=== PATIENT | female | born 1960 | race Hispanic/Latino ===

== ENCOUNTER 2019-04-20 04:26 | Emergency (ER) | payer MEDICARE ==
[2019-04-20 04:46] LABS: BASOPHILS % (AUTO) 0.5 % (0.0-5.0); HEMATOCRIT 38.3 % (36-48); LYMPHOCYTES % (AUTO) 32.7 % (21.0-51.0); MEAN CORPUSCULAR HEMOGLOBIN 31.1 pg (27.0-33.0); MEAN CORPUSCULAR HGB CONC 33.3 g/dL (32.0-36.0); MEAN CORPUSCULAR VOLUME 93.3 fL (79-99); MONOCYTES % (AUTO) 8.2 % (3.0-13.0); NEUTROPHILS % (AUTO) 55.6 % (40.0-77.0); PLATELET COUNT (AUTO) 280 K/uL (130-400); RED CELL DISTRIBUTION WIDTH 13.5 % (11.0-15.5); WHITE BLOOD COUNT (AUTO) 7.5 K/uL (4.8-10.8)
[2019-04-20 04:54] LABS: CREATININE 0.6 mg/dL (0.5-1.5); POTASSIUM 3.6 mmol/L (3.5-5.1)
[2019-04-20 04:59] LABS: ALBUMIN 3.7 g/dL (3.5-5.0); BILIRUBIN,TOTAL 0.7 mg/dL (0.2-1.0); TOTAL PROTEIN, SERUM 7.3 g/dL (6.0-8.3)
[2019-04-20] MEDS ORDERED: ORPHENADRINE CITRATE 30 MG/ML ML ONE (05:37)
[2019-04-20] MEDS ORDERED: KETOROLAC TROMETHAMINE 30MG/ML ONE (05:37)
[2019-04-20] MEDS ORDERED: SODIUM CHLORIDE 0.9% 1000ML 1,000 ML IV ONE (05:38)
[2019-04-20] MEDS ORDERED: LIDOCAINE 5% TOPICAL PATCH TP ONE (07:11)
== END 2019-04-20 08:05 | disposition home or self-care (01) ==
LOC: EDH 04:26
DX: M62.830 Muscle spasm of back (principal); R79.89 Other specified abnormal findings of blood chemistry; F41.9 Anxiety disorder, unspecified; F32.9 Major depressive disorder, single episode, unspecified; K21.9 Gastro-esophageal reflux disease without esophagitis; R06.02 Shortness of breath; R07.9 Chest pain, unspecified
CPT/HCPCS: 36415; 71045; 80053; 84484; 85025; 93005; 96374; 96375; 99285; J1885; J2360; J7030

== ENCOUNTER → 2019-07-24 | Outpatient (CLI) | payer MEDICARE | END | disposition home or self-care (01) | LOC: SHCH 10:06 | PROVIDERS: ATTEND Internal Medicine Cardiovascular Disease | DX: I51.7 Cardiomegaly (principal); R00.2 Palpitations; R07.9 Chest pain, unspecified | CPT/HCPCS: 93306 ==

== ENCOUNTER → 2019-08-20 | Outpatient (CLI) | payer OTHER | END | disposition home or self-care (01) | LOC: OIH 13:30 | PROVIDERS: ATTEND Internal Medicine Cardiovascular Disease | DX: Z13.6 Encounter for screening for cardiovascular disorders (principal) | CPT/HCPCS: 75571 ==

== ENCOUNTER 2019-09-07 17:24 | Emergency (ER) | payer MEDICARE ==
[2019-09-07 18:27] LABS: BASOPHILS % (AUTO) 0.4 % (0.0-5.0); EOSINOPHILS % (AUTO) 2.3 % (0.0-8.0); HEMATOCRIT 38.6 % (36-48); LYMPHOCYTES % (AUTO) 24.5 % (21.0-51.0); MEAN CORPUSCULAR HEMOGLOBIN 29.8 pg (27.0-33.0); MEAN CORPUSCULAR HGB CONC 32.4 g/dL (32.0-36.0); MEAN CORPUSCULAR VOLUME 91.9 fL (79-99); MONOCYTES % (AUTO) 5.7 % (3.0-13.0); NEUTROPHILS % (AUTO) 66.7 % (40.0-77.0); PLATELET COUNT (AUTO) 318 K/uL (130-400); RED CELL DISTRIBUTION WIDTH 12.9 % (11.0-15.5); WHITE BLOOD COUNT (AUTO) 7.1 K/uL (4.8-10.8)
[2019-09-07 18:39] LABS: CREATININE 0.8 mg/dL (0.5-1.5); POTASSIUM 3.4 mmol/L (3.5-5.1)
[2019-09-07 18:43] LABS: ALBUMIN 3.8 g/dL (3.5-5.0); BILIRUBIN,TOTAL 0.4 mg/dL (0.2-1.0); INR 1.13 (0.85-1.15); PARTIAL THROMBOPLASTIN TIME 29.6 SEC (26.3-35.5); PROTHROMBIN TIME 11.8 SEC (9.6-11.6); TOTAL PROTEIN, SERUM 7.4 g/dL (6.0-8.3)
[2019-09-07] MEDS ORDERED: TRAMADOL HCL 50 MG TABLET ONE (19:44)
[2019-09-07 19:54] LABS: APPEARANCE,URINE Cloudy (CLEAR); BILIRUBIN,URINE Negative (NEGATIVE); COLOR,URINE Dark Yellow (YELLOW); GLUCOSE, URINE (UA) TRACE mg/dL (NEGATIVE); KETONES,URINE Negative (NEGATIVE); LEUKOCYTE ESTERASE ,URINE Moderate (NEGATIVE); NITRATE,URINE Negative (NEGATIVE); OCCULT BLOOD,URINE Negative (NEGATIVE); PROTEIN,URINE Negative (NEGATIVE)
[2019-09-07] MEDS ORDERED: CYCLOBENZAPRINE HCL 10 MG TABLET ONE (20:20)
[2019-09-07 20:23] LABS: BACTERIA,URINE Few /HPF (None Seen); MUCUS,URINE Many LPF (None Seen); RBC,URINE 0-1 /HPF (0-1); SQUAMOUS EPITHELIAL CELL,UR Moderate /HPF (0-2)
== END 2019-09-07 20:27 | disposition home or self-care (01) ==
LOC: EDH 17:24
DX: M54.5 Low back pain (principal); R03.0 Elevated blood-pressure reading, without diagnosis of hypertension; F41.9 Anxiety disorder, unspecified; F32.9 Major depressive disorder, single episode, unspecified
CPT/HCPCS: 36415; 71045; 74176; 80053; 81001; 82150; 82550; 83690; 84484; 85025; 85610; 85730; 93005

== ENCOUNTER → 2019-10-21 | Outpatient (CLI) | payer MEDICARE | END | disposition home or self-care (01) | LOC: LAB 09:11 | PROVIDERS: ATTEND Neuromusculoskeletal Medicine & OMM | DX: M47.26 Other spondylosis with radiculopathy, lumbar region (principal); M48.061 Spinal stenosis, lumbar region without neurogenic claudication | CPT/HCPCS: 72114 ==

== ENCOUNTER → 2020-09-29 | Outpatient (CLI) | payer MEDICARE | END | disposition home or self-care (01) | LOC: RAH 09:39 | PROVIDERS: ATTEND Family Medicine | DX: M79.672 Pain in left foot (principal) | CPT/HCPCS: 73630 ==

== ENCOUNTER 2021-08-29 00:11 | Emergency (ER) | payer MEDICARE ==
[~2021-08-29] VITALS: Ht 157.5 cm; Wt 83.5 kg
[2021-08-29] MEDS ORDERED: IPRATROPIUM 0.5 MG/2.5 ML INH IH ONE ×2 (01:30→03:16)
[2021-08-29] MEDS ORDERED: ALBUTEROL 0.083% 2.5 MG/3 ML INH IH ONE ×2 (01:30→03:16)
[2021-08-29] MEDS ORDERED: GUAIFENESIN-CODEINE 5 ML SYRUP PO ONE (01:30)
[2021-08-29 04:15] VITALS: BP 137/64
== END 2021-08-29 05:43 | disposition left against medical advice (07) ==
LOC: EDH 00:11
DX: J06.9 Acute upper respiratory infection, unspecified (principal); I10 Essential (primary) hypertension; Z20.822 Contact with and (suspected) exposure to COVID-19; Z79.899 Other long term (current) drug therapy
CPT/HCPCS: 71045; 87635; 87804 ×2; 94640; 99285; C9803

== ENCOUNTER 2022-09-03 15:13 | Emergency (ER) | payer MEDICARE ==
[~2022-09-03] VITALS: Ht 154.9 cm; Wt 86.6 kg
[2022-09-03 16:09] LABS: HEMATOCRIT 35.8 % (36-48); MEAN CORPUSCULAR HEMOGLOBIN 30.4 pg (27.0-33.0); MEAN CORPUSCULAR HGB CONC 33.8 g/dL (32.0-36.0); MEAN CORPUSCULAR VOLUME 89.9 fL (79-99); RED BLOOD CELL COUNT(AUTO) 3.98 MIL/uL (4.00-5.50); RED CELL DISTRIBUTION WIDTH 12.9 % (11.0-15.5); WHITE BLOOD COUNT (AUTO) 7.7 K/uL (4.8-10.8)
[2022-09-03 16:19] LABS: CREATININE 0.7 mg/dL (0.5-1.5); POTASSIUM 4.1 mmol/L (3.5-5.1)
[2022-09-03 16:22] LABS: ALBUMIN 3.6 g/dL (3.5-5.0); TOTAL PROTEIN, SERUM 7.3 g/dL (6.0-8.3)
[2022-09-03 18:36] LABS: APPEARANCE,URINE CLEAR (CLEAR); BILIRUBIN,URINE NEGATIVE (NEGATIVE); COLOR,URINE LIGHT-YELLOW (YELLOW); GLUCOSE, URINE (UA) NEGATIVE (NEGATIVE); KETONES,URINE NEGATIVE (NEGATIVE); LEUKOCYTE ESTERASE ,URINE NEGATIVE Leu/uL (NEGATIVE); NITRATE,URINE NEGATIVE (NEGATIVE); OCCULT BLOOD,URINE NEGATIVE (NEGATIVE); PH,URINE 7.5 (5.0-8.0); PROTEIN,URINE NEGATIVE (NEGATIVE); UROBILINOGEN,URINE 0.2 mg/dL (0.2-1.0)
[2022-09-03 18:37] VITALS: BP 124/60
[2022-09-03] MEDS ORDERED: ONDA4TAB10 PO (18:37)
== END 2022-09-03 18:42 | disposition home or self-care (01) ==
LOC: EDH 15:13
DX: S06.0X0A Concussion without loss of consciousness, initial encounter (principal); E78.00 Pure hypercholesterolemia, unspecified; I10 Essential (primary) hypertension; R56.9 Unspecified convulsions; Z90.49 Acquired absence of other specified parts of digestive tract; W19.XXXA Unspecified fall, initial encounter; Y93.89 Activity, other specified; Y92.89 Other specified places as the place of occurrence of the external cause; Y99.8 Other external cause status
CPT/HCPCS: 36415; 70450; 80053; 81003; 85027; 93005

== ENCOUNTER 2023-04-13 12:39 | Emergency (ER) | payer MEDICARE, OTHER ==
[~2023-04-13] VITALS: Ht 157.5 cm; Wt 83.5 kg
[~2023-04-13 12:39] MED LIST: LEVO-70 PO; OLME20TA22 PO; ONDA4TAB10 PO
[2023-04-13 13:20] LABS: BASOPHILS # (AUTO) 0.04 K/uL (0.00-0.20); BASOPHILS % (AUTO) 0.5 % (0.0-5.0); EOSINOPHILS # (AUTO) 0.17 K/uL (0.00-0.70); EOSINOPHILS % (AUTO) 2.2 % (0.0-8.0); HEMATOCRIT 42.9 % (36-48); IMMATURE GRANULOCYTE ABSOLUTE 0.02 K/uL (0-1); LYMPHOCYTES # (AUTO) 2.4 K/uL (1.0-4.8); LYMPHOCYTES % (AUTO) 31.2 % (21.0-51.0); MEAN CORPUSCULAR HEMOGLOBIN 29.6 pg (27.0-33.0); MEAN CORPUSCULAR HGB CONC 32.6 g/dL (32.0-36.0); MEAN CORPUSCULAR VOLUME 90.7 fL (79-99); MONOCYTES # (AUTO) 0.6 K/uL (0.1-1.0); MONOCYTES % (AUTO) 7.6 % (3.0-13.0); NEUTROPHILS # (AUTO) 4.5 K/uL (1.8-7.7); NEUTROPHILS % (AUTO) 58.2 % (40.0-77.0); PLATELET COUNT (AUTO) 357 K/uL (130-400); RED BLOOD CELL COUNT(AUTO) 4.73 MIL/uL (4.00-5.50); RED CELL DISTRIBUTION WIDTH 13.3 % (11.0-15.5); WHITE BLOOD COUNT (AUTO) 7.8 K/uL (4.8-10.8)
[2023-04-13 13:28] LABS: CREATININE 0.6 mg/dL (0.5-1.5); POTASSIUM 4.1 mmol/L (3.5-5.1)
[2023-04-13 13:32] LABS: ALBUMIN 3.7 g/dL (3.5-5.0); BILIRUBIN,TOTAL 0.5 mg/dL (0.2-1.0); MAGNESIUM 2.1 mg/dL (1.80-2.40); TOTAL PROTEIN, SERUM 7.8 g/dL (6.0-8.3)
[2023-04-13 13:36] LABS: APPEARANCE,URINE CLOUDY (CLEAR); BILIRUBIN,URINE NEGATIVE (NEGATIVE); COLOR,URINE YELLOW (YELLOW); GLUCOSE, URINE (UA) NEGATIVE (NEGATIVE); KETONES,URINE NEGATIVE (NEGATIVE); LEUKOCYTE ESTERASE ,URINE 25 Leu/uL (NEGATIVE); NITRATE,URINE NEGATIVE (NEGATIVE); OCCULT BLOOD,URINE MODERATE (NEGATIVE); PROTEIN,URINE 50 mg/dL (NEGATIVE); UROBILINOGEN,URINE 0.2 mg/dL (0.2-1.0)
[2023-04-13 13:37] LABS: ADD UA MICROSCOPIC YES
[2023-04-13 13:54] LABS: BACTERIA,URINE FEW /HPF (None Seen); MUCUS,URINE MANY LPF (None Seen); SQUAMOUS EPITHELIAL CELL,UR MOD /HPF (0-2)
[2023-04-13 15:42] VITALS: BP 119/59; PULSE 69; RESP 18; O2SAT 96
== END 2023-04-13 16:22 | disposition home or self-care (01) ==
LOC: EDH 12:39
DX: I48.0 Paroxysmal atrial fibrillation (principal); R35.0 Frequency of micturition; E78.00 Pure hypercholesterolemia, unspecified; I10 Essential (primary) hypertension; Z79.01 Long term (current) use of anticoagulants; Z90.49 Acquired absence of other specified parts of digestive tract
CPT/HCPCS: 36415; 71045; 80053; 81001; 83735; 83880; 84484; 85025; 93005

== ENCOUNTER 2023-07-02 12:33 | Emergency (ER) | payer OTHER ==
[~2023-07-02] VITALS: Ht 154.9 cm; Wt 84.4 kg
[2023-07-02 13:24] LABS: BASOPHILS # (AUTO) 0.04 K/uL (0.00-0.20); BASOPHILS % (AUTO) 0.5 % (0.0-5.0); EOSINOPHILS # (AUTO) 0.02 K/uL (0.00-0.70); EOSINOPHILS % (AUTO) 0.2 % (0.0-8.0); HEMATOCRIT 41.8 % (36-48); IMMATURE GRANULOCYTE ABSOLUTE 0.02 K/uL (0-1); LYMPHOCYTES # (AUTO) 2.2 K/uL (1.0-4.8); MEAN CORPUSCULAR HEMOGLOBIN 30.3 pg (27.0-33.0); MEAN CORPUSCULAR HGB CONC 33.5 g/dL (32.0-36.0); MEAN CORPUSCULAR VOLUME 90.5 fL (79-99); MONOCYTES # (AUTO) 0.7 K/uL (0.1-1.0); MONOCYTES % (AUTO) 8.9 % (3.0-13.0); NEUTROPHILS # (AUTO) 5.4 K/uL (1.8-7.7); NEUTROPHILS % (AUTO) 64.2 % (40.0-77.0); PLATELET COUNT (AUTO) 365 K/uL (130-400); RED BLOOD CELL COUNT(AUTO) 4.62 MIL/uL (4.00-5.50); RED CELL DISTRIBUTION WIDTH 13.7 % (11.0-15.5); WHITE BLOOD COUNT (AUTO) 8.4 K/uL (4.8-10.8)
[2023-07-02 13:32] LABS: CREATININE 0.8 mg/dL (0.5-1.5); POTASSIUM 4.3 mmol/L (3.5-5.1)
[2023-07-02 13:37] LABS: ALBUMIN 3.8 g/dL (3.5-5.0); BILIRUBIN,TOTAL 0.6 mg/dL (0.2-1.0); TOTAL PROTEIN, SERUM 7.9 g/dL (6.0-8.3)
[2023-07-02] MEDS ORDERED: PROPAFENONE HCL 150 MG TABLET PO SCH (14:00)
[2023-07-02 14:50] LABS: BILIRUBIN,URINE NEGATIVE (NEGATIVE); COLOR,URINE YELLOW (YELLOW); GLUCOSE, URINE (UA) NEGATIVE (NEGATIVE); KETONES,URINE 5 mg/dL (NEGATIVE); LEUKOCYTE ESTERASE ,URINE 25 Leu/uL (NEGATIVE); NITRATE,URINE NEGATIVE (NEGATIVE); OCCULT BLOOD,URINE SMALL (NEGATIVE); PH,URINE 5.5 (5.0-8.0); PROTEIN,URINE 50 mg/dL (NEGATIVE); UROBILINOGEN,URINE 3 mg/dL (0.2-1.0)
[2023-07-02 14:51] LABS: ADD UA MICROSCOPIC YES; APPEARANCE,URINE HAZY (CLEAR)
[2023-07-02 14:53] LABS: BACTERIA,URINE MOD /HPF (None Seen); MUCUS,URINE MANY LPF (None Seen); SQUAMOUS EPITHELIAL CELL,UR MANY /HPF (0-2)
[2023-07-02] MEDS ORDERED: CEPH500B PO (17:17)
[2023-07-02] MEDS ORDERED: PROP225T3 PO (17:17)
[2023-07-02] MEDS ORDERED: CEPHALEXIN 500 MG CAPSULE PO ONE (17:30)
[2023-07-02 17:43] VITALS: BP 112/64; PULSE 71; RESP 16; O2SAT 99
== END 2023-07-02 17:46 | disposition home or self-care (01) ==
LOC: EDH 12:33
DX: I48.0 Paroxysmal atrial fibrillation (principal); N30.00 Acute cystitis without hematuria; I48.91 Unspecified atrial fibrillation; I10 Essential (primary) hypertension; E78.00 Pure hypercholesterolemia, unspecified; Z90.49 Acquired absence of other specified parts of digestive tract
CPT/HCPCS: 36415; 71045; 80053; 81001; 84484; 85025; 87088; 93005

== ENCOUNTER 2023-07-11 05:45 | Day surgery (SDC) | payer OTHER ==
[2023-07-07 10:46] LABS: BASOPHILS # (AUTO) 0.03 K/uL (0.00-0.20); BASOPHILS % (AUTO) 0.5 % (0.0-5.0); EOSINOPHILS # (AUTO) 0.04 K/uL (0.00-0.70); EOSINOPHILS % (AUTO) 0.6 % (0.0-8.0); HEMATOCRIT 37.7 % (36-48); IMMATURE GRANULOCYTE ABSOLUTE 0.02 K/uL (0-1); LYMPHOCYTES # (AUTO) 1.7 K/uL (1.0-4.8); LYMPHOCYTES % (AUTO) 26.8 % (21.0-51.0); MEAN CORPUSCULAR HEMOGLOBIN 30.3 pg (27.0-33.0); MEAN CORPUSCULAR HGB CONC 33.2 g/dL (32.0-36.0); MEAN CORPUSCULAR VOLUME 91.3 fL (79-99); MONOCYTES # (AUTO) 0.5 K/uL (0.1-1.0); MONOCYTES % (AUTO) 8.7 % (3.0-13.0); NEUTROPHILS # (AUTO) 3.9 K/uL (1.8-7.7); NEUTROPHILS % (AUTO) 63.1 % (40.0-77.0); PLATELET COUNT (AUTO) 326 K/uL (130-400); RED BLOOD CELL COUNT(AUTO) 4.13 MIL/uL (4.00-5.50); RED CELL DISTRIBUTION WIDTH 13.5 % (11.0-15.5); WHITE BLOOD COUNT (AUTO) 6.2 K/uL (4.8-10.8)
[2023-07-07 10:52] LABS: CREATININE 0.6 mg/dL (0.5-1.5); POTASSIUM 4.3 mmol/L (3.5-5.1)
[2023-07-07 10:55] LABS: INR 1.48 (0.85-1.15); PROTHROMBIN TIME 16.7 SEC (9.6-11.6)
[2023-07-07 10:56] LABS: PARTIAL THROMBOPLASTIN TIME 53.1 SEC (26.3-35.5)
[2023-07-07 11:10] LABS: B-TYPE NATRIURETIC PEPTIDE 94 pg/mL (0-100)
[2023-07-07 11:15] VITALS: BP 116/60; PULSE 59; RESP 15
[~2023-07-11] VITALS: Ht 154.9 cm; Wt 83.9 kg
[2023-07-11] VITALS (9 sets, daily range): BP systolic 108–150; BP diastolic 46–79; PULSE 45–52; RESP 14–18
[~2023-07-11 05:45] MED LIST changes: +CEPH500C2 PO; -LEVO-70 PO; -OLME20TA22 PO; +OLME5TAB29 PO; -ONDA4TAB10 PO; +PROP225T3 PO; +RIVA20TA PO; +ROSU10TA28 PO
[2023-07-11] MEDS ORDERED: 0.9%NACL 1000ML 1,000 ML IV ONE (06:49)
[2023-07-11] MEDS ORDERED: HEPARIN 10,000 UNIT/10ML (1,000 UNIT/ML) VIAL ONE (07:12)
[2023-07-11] MEDS ORDERED: LIDOCAINE HCL 400MG/20ML VIAL ONE (07:12)
[2023-07-11] MEDS ORDERED: NITROGLYCERIN 50MG VIAL ONE (07:12)
[2023-07-11] MEDS ORDERED: NICARDIPINE 25MG INJ IV ONE (07:25)
[2023-07-11] MEDS ORDERED: FENTANYL CITRATE PF 50 MCG/1 ML 2ML VIAL ONE ×2 (07:41→08:30)
[2023-07-11] MEDS ORDERED: MIDAZOLAM HCL 1 MG/ML 2ML VIAL ONE ×2 (07:41→08:30)
[2023-07-11] MEDS ORDERED: IOHEXOL 350 MG/ML 100ML INFUS..BTL IV ONE (07:57)
[2023-07-11] MEDS ORDERED: 0.9%NACL 1000ML 1,000 ML IV SCH (09:30)
[2023-07-11] MEDS ORDERED: GLUCAGON 1MG KIT 1 MG ML IM PRN (09:30)
[2023-07-11] MEDS ORDERED: DEXTROSE 50%-WATER 50 ML DISP.SYRIN IV PRN (09:30)
== END 2023-07-11 12:15 | disposition home or self-care (01) ==
LOC: DAH 05:45
PROVIDERS: ATTEND Internal Medicine Cardiovascular Disease
DX: I25.119 Atherosclerotic heart disease of native coronary artery with unspecified angina pectoris (principal); I48.0 Paroxysmal atrial fibrillation; I11.0 Hypertensive heart disease with heart failure; I50.32 Chronic diastolic (congestive) heart failure; I49.5 Sick sinus syndrome; I47.29 Other ventricular tachycardia; I49.8 Other specified cardiac arrhythmias; I44.2 Atrioventricular block, complete; F41.9 Anxiety disorder, unspecified; E78.5 Hyperlipidemia, unspecified; G47.33 Obstructive sleep apnea (adult) (pediatric); E66.9 Obesity, unspecified; Z79.01 Long term (current) use of anticoagulants; Z79.899 Other long term (current) drug therapy; Z98.890 Other specified postprocedural states; Z90.49 Acquired absence of other specified parts of digestive tract; Z68.33 Body mass index [BMI] 33.0-33.9, adult
CPT/HCPCS: 80048; 83880; 85025; 85610; 85730; 36415; 71045; 93005; 93458; C1887; C1769 ×2; C1894; Q9965; J3010 ×2; J3490 ×3; J7030; J1644 ×3; J2250 ×2; A4215; A4222; A4221; A4663; A4216; A4606; A4223 ×3; 99156; 99157; Q9967

== ENCOUNTER 2023-08-05 14:55 | Emergency (ER) | payer OTHER, MEDICARE ==
[~2023-08-05] VITALS: Ht 157.5 cm; Wt 83.5 kg
[2023-08-05 15:02] VITALS: BP 121/56; PULSE 59; RESP 16; O2SAT 98
[2023-08-05 15:25] LABS: APPEARANCE,URINE CLEAR (CLEAR); BILIRUBIN,URINE NEGATIVE (NEGATIVE); COLOR,URINE YELLOW (YELLOW); GLUCOSE, URINE (UA) NEGATIVE (NEGATIVE); KETONES,URINE NEGATIVE (NEGATIVE); LEUKOCYTE ESTERASE ,URINE NEGATIVE Leu/uL (NEGATIVE); NITRATE,URINE NEGATIVE (NEGATIVE); OCCULT BLOOD,URINE MODERATE (NEGATIVE); PH,URINE 5.5 (5.0-8.0); PROTEIN,URINE 10 mg/dL (NEGATIVE); UROBILINOGEN,URINE 0.2 mg/dL (0.2-1.0)
[2023-08-05 15:27] LABS: ADD UA MICROSCOPIC YES
[2023-08-05 15:29] LABS: BACTERIA,URINE RARE /HPF (None Seen); MUCUS,URINE FEW LPF (None Seen); SQUAMOUS EPITHELIAL CELL,UR FEW /HPF (0-2)
[2023-08-05] MEDS ORDERED: CEPH500C2 PO (15:58)
== END 2023-08-05 16:28 | disposition home or self-care (01) ==
LOC: EDH 14:55
DX: N39.0 Urinary tract infection, site not specified (principal); I48.91 Unspecified atrial fibrillation; E78.00 Pure hypercholesterolemia, unspecified; I10 Essential (primary) hypertension; Z79.01 Long term (current) use of anticoagulants; Z90.49 Acquired absence of other specified parts of digestive tract
CPT/HCPCS: 81001

== ENCOUNTER 2024-01-31 14:06 | Emergency (ER) | payer OTHER, MEDICARE ==
[~2024-01-31] VITALS: Ht 154.9 cm; Wt 90.3 kg
[~2024-01-31 14:06] MED LIST changes: -CEPH500C2 PO; +PROP225C8 PO; -PROP225T3 PO; -ROSU10TA28 PO; +ROSU10TA72 PO
[2024-01-31] MEDS: PHENAZOPYRIDINE HCL 200 MG TABLET PO ONE (15:00)
[2024-01-31] MEDS: ACETAMINOPHEN 500 MG TABLET PO ONE (15:01)
[2024-01-31 15:03] LABS: APPEARANCE,URINE CLEAR (CLEAR); BILIRUBIN,URINE NEGATIVE (NEGATIVE); COLOR,URINE COLORLESS (YELLOW); GLUCOSE, URINE (UA) NEGATIVE (NEGATIVE); KETONES,URINE NEGATIVE (NEGATIVE); LEUKOCYTE ESTERASE ,URINE NEGATIVE Leu/uL (NEGATIVE); NITRATE,URINE NEGATIVE (NEGATIVE); PH,URINE 6.5 (5.0-8.0); PROTEIN,URINE NEGATIVE (NEGATIVE); UROBILINOGEN,URINE 0.2 mg/dL (0.2-1.0)
[2024-01-31 15:04] LABS: ADD UA MICROSCOPIC NO; OCCULT BLOOD,URINE NEGATIVE (NEGATIVE)
[2024-01-31 16:00] VITALS: BP 117/71; PULSE 80; RESP 18; O2SAT 99
== END 2024-01-31 16:01 | disposition home or self-care (01) ==
LOC: EDH 14:06
DX: R35.0 Frequency of micturition (principal); I10 Essential (primary) hypertension; E78.00 Pure hypercholesterolemia, unspecified; I48.91 Unspecified atrial fibrillation; Z79.899 Other long term (current) drug therapy; Z98.890 Other specified postprocedural states
CPT/HCPCS: 81003

== ENCOUNTER 2024-02-15 09:58 | Emergency (ER) | payer OTHER, MEDICARE ==
[~2024-02-15] VITALS: Ht 154.9 cm; Wt 90.3 kg
[2024-02-15 10:23] LABS: BASOPHILS # (AUTO) 0.04 K/uL (0.00-0.20); BASOPHILS % (AUTO) 0.5 % (0.0-5.0); EOSINOPHILS # (AUTO) 0.25 K/uL (0.00-0.70); EOSINOPHILS % (AUTO) 3.2 % (0.0-8.0); HEMATOCRIT 44.3 % (36-48); IMMATURE GRANULOCYTE ABSOLUTE 0.04 K/uL (0-1); LYMPHOCYTES # (AUTO) 2.5 K/uL (1.0-4.8); LYMPHOCYTES % (AUTO) 31.3 % (21.0-51.0); MEAN CORPUSCULAR HEMOGLOBIN 30.6 pg (27.0-33.0); MEAN CORPUSCULAR HGB CONC 33.4 g/dL (32.0-36.0); MEAN CORPUSCULAR VOLUME 91.7 fL (79-99); MONOCYTES # (AUTO) 0.6 K/uL (0.1-1.0); MONOCYTES % (AUTO) 7.8 % (3.0-13.0); NEUTROPHILS # (AUTO) 4.5 K/uL (1.8-7.7); NEUTROPHILS % (AUTO) 56.7 % (40.0-77.0); PLATELET COUNT (AUTO) 380 K/uL (130-400); RED BLOOD CELL COUNT(AUTO) 4.83 MIL/uL (4.00-5.50); RED CELL DISTRIBUTION WIDTH 13.2 % (11.0-15.5); WHITE BLOOD COUNT (AUTO) 7.9 K/uL (4.8-10.8)
[2024-02-15] MEDS ORDERED: METOPROLOL TARTRATE 1 MG/ML 5ML VIAL IV ONE (10:30)
[2024-02-15 10:33] LABS: CREATININE 0.7 mg/dL (0.5-1.0); POTASSIUM 3.6 mmol/L (3.5-5.1)
[2024-02-15 10:36] LABS: PARTIAL THROMBOPLASTIN TIME 42.1 SEC (26.3-35.5)
[2024-02-15 10:44] LABS: B-TYPE NATRIURETIC PEPTIDE 100 pg/mL (0-100)
[2024-02-15] MEDS ORDERED: DILTIAZEM 125 MG/25 ML INJ IV ONE (10:57)
[2024-02-15] MEDS ORDERED: DILTIAZEM 125 MG/25 ML INJ 125 MG in 0.9%NACL 100ML 100 ML IV PRN (11:00)
[2024-02-15] MEDS: DILTIAZEM 25MG INJ IVP PRN (11:02)
[2024-02-15] MEDS: DILTIAZEM 125 MG/NS 125ML IV PRN (11:03)
[2024-02-15 11:40] LABS: INR 1.14 (0.85-1.15); PROTHROMBIN TIME 13.3 SEC (9.6-11.6)
[2024-02-15] MEDS: DILTIAZEM 120MG SR CAP PO ONE (12:04)
[2024-02-15 12:31] VITALS: BP 108/65; PULSE 69; RESP 20; O2SAT 100
[2024-02-15] MEDS ORDERED: DILT120C89 PO (13:11)
== END 2024-02-15 13:21 | disposition home or self-care (01) ==
LOC: EDH 09:58
DX: I48.0 Paroxysmal atrial fibrillation (principal); I10 Essential (primary) hypertension; E78.00 Pure hypercholesterolemia, unspecified; Z79.899 Other long term (current) drug therapy; Z98.890 Other specified postprocedural states; Z87.440 Personal history of urinary (tract) infections; Z95.810 Presence of automatic (implantable) cardiac defibrillator
CPT/HCPCS: 99285; 96365; 71045; 96366; 96375; 82550; 84484; 80048; 83880; 85025; 85610; 85730; 36415; 93005 ×3; J3490 ×2

== ENCOUNTER 2024-04-03 15:43 | Emergency (ER) | payer OTHER, MEDICARE ==
[~2024-04-03] VITALS: Ht 154.9 cm; Wt 89.8 kg
[~2024-04-03 15:43] MED LIST changes: +DILT120C89 PO; +PROP225C24 PO; -PROP225C8 PO
[2024-04-03] MEDS: PHENAZOPYRIDINE HCL 200 MG TABLET PO ONE (16:13)
[2024-04-03] MEDS: ACETAMINOPHEN 500 MG TABLET PO ONE (16:14)
[2024-04-03 16:29] LABS: APPEARANCE,URINE CLEAR (CLEAR); BILIRUBIN,URINE NEGATIVE (NEGATIVE); COLOR,URINE LIGHT-YELLOW (YELLOW); GLUCOSE, URINE (UA) NEGATIVE (NEGATIVE); KETONES,URINE NEGATIVE (NEGATIVE); LEUKOCYTE ESTERASE ,URINE 25 Leu/uL (NEGATIVE); NITRATE,URINE NEGATIVE (NEGATIVE); PROTEIN,URINE NEGATIVE (NEGATIVE)
[2024-04-03 16:31] LABS: ADD UA MICROSCOPIC YES
[2024-04-03 16:33] LABS: BACTERIA,URINE RARE /HPF (None Seen); MUCUS,URINE RARE LPF (None Seen); SQUAMOUS EPITHELIAL CELL,UR RARE /HPF (0-2); YEAST,URINE BUDDING FEW /HPF (None Seen)
[2024-04-03] MEDS ORDERED: AMOX1TAB16 PO (16:44)
[2024-04-03] MEDS ORDERED: PHEN-847 PO (16:44)
[2024-04-03 16:47] VITALS: BP 127/61; PULSE 70; RESP 17; O2SAT 98
[2024-04-03] MEDS ORDERED: AMOX/CLAV 875/125MG TAB PO ONE (17:00)
== END 2024-04-03 17:05 | disposition home or self-care (01) ==
LOC: EDH 15:43
DX: N30.01 Acute cystitis with hematuria (principal); R30.0 Dysuria; E78.00 Pure hypercholesterolemia, unspecified; I10 Essential (primary) hypertension; I48.91 Unspecified atrial fibrillation; Z79.01 Long term (current) use of anticoagulants; Z79.899 Other long term (current) drug therapy; Z95.810 Presence of automatic (implantable) cardiac defibrillator
CPT/HCPCS: 81001

== ENCOUNTER 2024-04-13 15:00 | Emergency (ER) | payer OTHER, MEDICARE ==
[~2024-04-13] VITALS: Ht 154.9 cm; Wt 90.3 kg
[~2024-04-13 15:00] MED LIST changes: +AMOX1TAB16 PO; +PHEN-847 PO
[2024-04-13 17:38] LABS: APPEARANCE,URINE CLEAR (CLEAR); BILIRUBIN,URINE NEGATIVE (NEGATIVE); COLOR,URINE LIGHT-YELLOW (YELLOW); GLUCOSE, URINE (UA) NEGATIVE (NEGATIVE); KETONES,URINE NEGATIVE (NEGATIVE); LEUKOCYTE ESTERASE ,URINE NEGATIVE Leu/uL (NEGATIVE); NITRATE,URINE NEGATIVE (NEGATIVE); OCCULT BLOOD,URINE NEGATIVE (NEGATIVE); PROTEIN,URINE NEGATIVE (NEGATIVE); UROBILINOGEN,URINE 0.2 mg/dL (0.2-1.0)
[2024-04-13 17:47] LABS: ADD UA MICROSCOPIC YES
[2024-04-13 17:49] LABS: MUCUS,URINE RARE LPF (None Seen); SQUAMOUS EPITHELIAL CELL,UR RARE /HPF (0-2); WBC,URINE 0-1 /HPF (0-1)
[2024-04-13 18:14] LABS: BASOPHILS # (AUTO) 0.04 K/uL (0.00-0.20); BASOPHILS % (AUTO) 0.5 % (0.0-5.0); EOSINOPHILS # (AUTO) 0.26 K/uL (0.00-0.70); EOSINOPHILS % (AUTO) 3.4 % (0.0-8.0); HEMATOCRIT 35.7 % (36-48); IMMATURE GRANULOCYTE ABSOLUTE 0.04 K/uL (0-1); LYMPHOCYTES # (AUTO) 2.1 K/uL (1.0-4.8); LYMPHOCYTES % (AUTO) 28.4 % (21.0-51.0); MEAN CORPUSCULAR HEMOGLOBIN 30.9 pg (27.0-33.0); MEAN CORPUSCULAR HGB CONC 33.3 g/dL (32.0-36.0); MEAN CORPUSCULAR VOLUME 92.7 fL (79-99); MONOCYTES # (AUTO) 0.6 K/uL (0.1-1.0); MONOCYTES % (AUTO) 8.5 % (3.0-13.0); NEUTROPHILS # (AUTO) 4.4 K/uL (1.8-7.7); NEUTROPHILS % (AUTO) 58.7 % (40.0-77.0); PLATELET COUNT (AUTO) 322 K/uL (130-400); RED BLOOD CELL COUNT(AUTO) 3.85 MIL/uL (4.00-5.50); RED CELL DISTRIBUTION WIDTH 13.2 % (11.0-15.5); WHITE BLOOD COUNT (AUTO) 7.5 K/uL (4.8-10.8)
[2024-04-13] MEDS: 0.9%NACL 1000ML 1,000 ML IV ONE (18:22)
[2024-04-13] MEDS: KETOROLAC 15MG/ML VIAL (15MG/ML) IV ONE (18:23)
[2024-04-13] MEDS: acetaMINOPHEN 325 MG TAB PO ONE (18:23)
[2024-04-13 18:25] LABS: CREATININE 0.7 mg/dL (0.5-1.0); POTASSIUM 4.3 mmol/L (3.5-5.1)
[2024-04-13] MEDS ORDERED: LACT10SO76 PO (19:31)
[2024-04-13 19:36] VITALS: BP 121/61; PULSE 45; RESP 16; O2SAT 100
== END 2024-04-13 20:04 | disposition home or self-care (01) ==
LOC: EDH 15:00
DX: K59.00 Constipation, unspecified (principal); R10.2 Pelvic and perineal pain; E78.00 Pure hypercholesterolemia, unspecified; I10 Essential (primary) hypertension; I48.91 Unspecified atrial fibrillation; Z79.899 Other long term (current) drug therapy; Z98.890 Other specified postprocedural states
CPT/HCPCS: 99285; 74176; 96374; 96361; 80048; 85025; 81001; 36415; J7030; J1885

== ENCOUNTER 2024-04-24 21:05 | Emergency (ER) | payer OTHER, MEDICARE ==
[~2024-04-24 21:05] MED LIST changes: +LACT10SO76 PO
[2024-04-24 21:23] LABS: BASOPHILS # (AUTO) 0.03 K/uL (0.00-0.20); BASOPHILS % (AUTO) 0.4 % (0.0-5.0); EOSINOPHILS # (AUTO) 0.21 K/uL (0.00-0.70); EOSINOPHILS % (AUTO) 2.5 % (0.0-8.0); HEMATOCRIT 37.1 % (36-48); IMMATURE GRANULOCYTE ABSOLUTE 0.04 K/uL (0-1); LYMPHOCYTES # (AUTO) 2.7 K/uL (1.0-4.8); LYMPHOCYTES % (AUTO) 32.5 % (21.0-51.0); MEAN CORPUSCULAR HEMOGLOBIN 30.9 pg (27.0-33.0); MEAN CORPUSCULAR HGB CONC 33.4 g/dL (32.0-36.0); MEAN CORPUSCULAR VOLUME 92.5 fL (79-99); MONOCYTES # (AUTO) 0.7 K/uL (0.1-1.0); MONOCYTES % (AUTO) 8.5 % (3.0-13.0); NEUTROPHILS # (AUTO) 4.7 K/uL (1.8-7.7); NEUTROPHILS % (AUTO) 55.6 % (40.0-77.0); PLATELET COUNT (AUTO) 329 K/uL (130-400); RED BLOOD CELL COUNT(AUTO) 4.01 MIL/uL (4.00-5.50); RED CELL DISTRIBUTION WIDTH 13.1 % (11.0-15.5); WHITE BLOOD COUNT (AUTO) 8.4 K/uL (4.8-10.8)
[2024-04-24 21:28] LABS: APPEARANCE,URINE CLEAR (CLEAR); BILIRUBIN,URINE NEGATIVE (NEGATIVE); COLOR,URINE LIGHT-YELLOW (YELLOW); GLUCOSE, URINE (UA) NEGATIVE (NEGATIVE); KETONES,URINE NEGATIVE (NEGATIVE); LEUKOCYTE ESTERASE ,URINE 75 Leu/uL (NEGATIVE); NITRATE,URINE NEGATIVE (NEGATIVE); OCCULT BLOOD,URINE SMALL (NEGATIVE); PH,URINE 5.5 (5.0-8.0); PROTEIN,URINE NEGATIVE (NEGATIVE); UROBILINOGEN,URINE 0.2 mg/dL (0.2-1.0)
[2024-04-24 21:31] LABS: ADD UA MICROSCOPIC YES
[2024-04-24 21:33] LABS: MUCUS,URINE RARE LPF (None Seen); SQUAMOUS EPITHELIAL CELL,UR FEW /HPF (0-2)
[2024-04-24 21:35] LABS: CREATININE 0.9 mg/dL (0.5-1.0)
[2024-04-24 21:36] LABS: INR 1.25 (0.85-1.15); PROTHROMBIN TIME 13.3 SEC (9.6-11.6)
[2024-04-24 21:37] LABS: PARTIAL THROMBOPLASTIN TIME 34.5 SEC (26.3-35.5)
[2024-04-24 21:50] LABS: ALBUMIN 3.8 g/dL (3.5-5.0); BILIRUBIN,TOTAL 0.3 mg/dL (0.2-1.0); TOTAL PROTEIN, SERUM 7.6 g/dL (6.0-8.3)
[2024-04-24] MEDS: cefTRIAXone 1G VIAL IVPB ONE (23:58)
[2024-04-24] MEDS: cefTRIAXone 1G VIAL ONE (23:58)
[2024-04-24] MEDS: 0.9% NACL 500ML IV.SOLN 500 ML IV SCH (23:58)
[2024-04-25 01:10] VITALS: BP 144/81; PULSE 73; RESP 20; O2SAT 96
== END 2024-04-25 01:10 | disposition home or self-care (01) ==
LOC: EDH 21:05
DX: S09.90XA Unspecified injury of head, initial encounter (principal); N39.0 Urinary tract infection, site not specified; I48.0 Paroxysmal atrial fibrillation; I48.91 Unspecified atrial fibrillation; E78.00 Pure hypercholesterolemia, unspecified; I10 Essential (primary) hypertension; Z79.01 Long term (current) use of anticoagulants; Z79.899 Other long term (current) drug therapy; Z95.810 Presence of automatic (implantable) cardiac defibrillator; W18.39XA Other fall on same level, initial encounter; Y93.89 Activity, other specified; Y92.89 Other specified places as the place of occurrence of the external cause; Y99.8 Other external cause status
CPT/HCPCS: 99285; 70450; 96374; 71045; 84484; 80053; 85025; 85610; 85730; 87086; 81001; 36415; 72125; 93005; J0696

== ENCOUNTER 2024-04-29 07:09 | Observation (INO) | payer OTHER, MEDICARE ==
[~2024-04-29] VITALS: Ht 162.6 cm; Wt 89.8 kg
[2024-04-29 08:14] LABS: CREATININE 0.9 mg/dL (0.5-1.0); POTASSIUM 3.7 mmol/L (3.5-5.1)
[2024-04-29 08:36] LABS: APPEARANCE,URINE CLEAR (CLEAR); BILIRUBIN,URINE NEGATIVE (NEGATIVE); COLOR,URINE LIGHT-YELLOW (YELLOW); GLUCOSE, URINE (UA) NEGATIVE (NEGATIVE); KETONES,URINE 5 mg/dL (NEGATIVE); LEUKOCYTE ESTERASE ,URINE 25 Leu/uL (NEGATIVE); NITRATE,URINE NEGATIVE (NEGATIVE); OCCULT BLOOD,URINE SMALL (NEGATIVE); PROTEIN,URINE NEGATIVE (NEGATIVE); UROBILINOGEN,URINE 0.2 mg/dL (0.2-1.0)
[2024-04-29 08:51] LABS: BASOPHILS # (AUTO) 0.03 K/uL (0.00-0.20); BASOPHILS % (AUTO) 0.4 % (0.0-5.0); EOSINOPHILS # (AUTO) 0.12 K/uL (0.00-0.70); EOSINOPHILS % (AUTO) 1.8 % (0.0-8.0); HEMATOCRIT 37.7 % (36-48); IMMATURE GRANULOCYTE ABSOLUTE 0.02 K/uL (0-1); LYMPHOCYTES # (AUTO) 1.5 K/uL (1.0-4.8); LYMPHOCYTES % (AUTO) 22.2 % (21.0-51.0); MEAN CORPUSCULAR HEMOGLOBIN 30.9 pg (27.0-33.0); MEAN CORPUSCULAR HGB CONC 33.2 g/dL (32.0-36.0); MEAN CORPUSCULAR VOLUME 93.1 fL (79-99); MONOCYTES # (AUTO) 0.9 K/uL (0.1-1.0); MONOCYTES % (AUTO) 13.7 % (3.0-13.0); NEUTROPHILS # (AUTO) 4.1 K/uL (1.8-7.7); NEUTROPHILS % (AUTO) 61.6 % (40.0-77.0); PLATELET COUNT (AUTO) 295 K/uL (130-400); RED BLOOD CELL COUNT(AUTO) 4.05 MIL/uL (4.00-5.50); RED CELL DISTRIBUTION WIDTH 13.6 % (11.0-15.5); WHITE BLOOD COUNT (AUTO) 6.7 K/uL (4.8-10.8)
[2024-04-29 08:55] LABS: MUCUS,URINE RARE LPF (None Seen); SQUAMOUS EPITHELIAL CELL,UR FEW /HPF (0-2)
[2024-04-29] MEDS: cefTRIAXone 1G VIAL IVPB ONE (08:58)
[2024-04-29 09:16] LABS: B-TYPE NATRIURETIC PEPTIDE 85 pg/mL (0-100)
[2024-04-29] MEDS: metoPROLOL tartRATE 1 MG/ML 5ML VIAL IV ONE (09:38)
[2024-04-29] MEDS ORDERED: PROP325C17 PO (09:51)
[2024-04-29] MEDS ORDERED: metoPROLOL tartRATE 1 MG/ML 5ML VIAL IV PRN (10:00)
[2024-04-29] MEDS: dilTIAZem 125 MG/25 ML INJ 125 MG in 0.9%NACL 100ML 100 ML IV SCH (12:00)
[2024-04-29 16:00] VITALS: BP 99/60; PULSE 111; RESP 18; TEMP 97.8
[2024-04-29 20:00] VITALS: BP 120/53; PULSE 89; RESP 20; TEMP 98.6
[2024-04-29] MEDS: metoPROLOL tartRATE 25 MG TAB PO SCH (20:08)
[2024-04-29] MEDS: PROPAFENONE HCL 325 MG PO SCH (20:09)
[2024-04-29 20:45] VITALS: O2SAT 96
[2024-04-29] MEDS ORDERED: metoPROLOL tartRATE 25 MG TAB PO SCH (21:00)
[2024-04-29 23:32] LABS: SARS-CoV-2, RNA, NAAT POSITIVE SARS CoV-2 (NEGATIVE)
[2024-04-29 23:35] VITALS: BP 138/66; PULSE 94; RESP 16; TEMP 99
[2024-04-29 23:38] VITALS: PULSE 84; RESP 17; O2SAT 96
[2024-04-30] MEDS ORDERED: guaiFENesin-DM 200/20MG 10ML PO PRN (00:30)
[2024-04-30 03:18] VITALS: PULSE 88; RESP 22; O2SAT 96
[2024-04-30 03:53] VITALS: BP 94/57; PULSE 69; RESP 16; TEMP 98.9
[2024-04-30 03:56] LABS: HEMATOCRIT 36.2 % (36-48); MEAN CORPUSCULAR HEMOGLOBIN 30.9 pg (27.0-33.0); MEAN CORPUSCULAR HGB CONC 32.9 g/dL (32.0-36.0); RED BLOOD CELL COUNT(AUTO) 3.85 MIL/uL (4.00-5.50); RED CELL DISTRIBUTION WIDTH 13.5 % (11.0-15.5); WHITE BLOOD COUNT (AUTO) 6.3 K/uL (4.8-10.8)
[2024-04-30 04:16] LABS: CREATININE 0.8 mg/dL (0.5-1.0)
[2024-04-30] MEDS: LACTULOSE 20 GM/30 ML UDCUP ONE (05:35)
[2024-04-30] MEDS: LACTULOSE 20 GM/30 ML UDCUP PO PRN (06:09)
[2024-04-30 07:00] VITALS: BP 85/54; PULSE 77; RESP 16; TEMP 98.1; O2SAT 96
[2024-04-30] MEDS: OLMESARTAN MEDOXOMIL 10 MG PO SCH (07:49)
[2024-04-30] MEDS: RIVAROXABAN 20 MG TABLET PO SCH (07:49)
[2024-04-30 11:00] VITALS: BP 84/59; PULSE 66; RESP 17; TEMP 98.6
[2024-04-30] MEDS: cefTRIAXone 1G VIAL IVPB SCH (12:21)
[2024-04-30] MEDS ORDERED: METO25 PO (13:48)
[2024-04-30] MEDS ORDERED: CEFD300C3 PO (13:48)
[2024-04-30] MEDS: 0.9%NACL 1000ML 1,000 ML IV SCH (14:35)
[2024-04-30 14:57] VITALS: BP 100/67; PULSE 77; RESP 16
== END 2024-04-30 16:58 | disposition still patient (30) ==
LOC: EDH 07:09 → EDHIP 09:32 → INTOOBSV 09:32 → 2AH 16:03
PROVIDERS: ADMIT Hospitalist; ATTEND Hospitalist
DX: I48.0 Paroxysmal atrial fibrillation (principal); Z20.822 Contact with and (suspected) exposure to COVID-19; N39.0 Urinary tract infection, site not specified; R07.89 Other chest pain; R00.2 Palpitations; I10 Essential (primary) hypertension; G40.909 Epilepsy, unspecified, not intractable, without status epilepticus; E66.9 Obesity, unspecified; G47.33 Obstructive sleep apnea (adult) (pediatric); E78.00 Pure hypercholesterolemia, unspecified; Z90.49 Acquired absence of other specified parts of digestive tract; Z68.34 Body mass index [BMI] 34.0-34.9, adult; Z90.710 Acquired absence of both cervix and uterus; Z95.0 Presence of cardiac pacemaker; W19.XXXA Unspecified fall, initial encounter; Y93.89 Activity, other specified; Y92.89 Other specified places as the place of occurrence of the external cause; Y99.8 Other external cause status
CPT/HCPCS: 96376; 96365; 96366 ×2; 96375; 82550; 84484 ×2; 80048 ×2; 83880; 85025; 81001; 36415 ×2; 87635; 71045 ×2; 99291; 93005; 94660 ×2; 96361; 96368; 83735; 85027; J3490 ×3; J0696 ×2; G0378 ×2

== ENCOUNTER 2024-06-09 18:27 | Inpatient (IN) | payer OTHER, MEDICARE ==
[~2024-06-09] VITALS: Ht 160 cm; Wt 90.3 kg
[~2024-06-09 18:27] MED LIST changes: -AMOX1TAB16 PO; +CEFD300C3 PO; -DILT120C89 PO; -LACT10SO76 PO; +METO25 PO; -OLME5TAB29 PO; -PHEN-847 PO; -PROP225C24 PO; +PROP325C17 PO; -ROSU10TA72 PO
[2024-06-09 18:49] LABS: BASOPHILS # (AUTO) 0.02 K/uL (0.00-0.20); BASOPHILS % (AUTO) 0.3 % (0.0-5.0); EOSINOPHILS # (AUTO) 0.22 K/uL (0.00-0.70); EOSINOPHILS % (AUTO) 2.9 % (0.0-8.0); HEMATOCRIT 39.5 % (36-48); IMMATURE GRANULOCYTE ABSOLUTE 0.02 K/uL (0-1); LYMPHOCYTES # (AUTO) 2.2 K/uL (1.0-4.8); LYMPHOCYTES % (AUTO) 28.7 % (21.0-51.0); MEAN CORPUSCULAR HEMOGLOBIN 30.7 pg (27.0-33.0); MEAN CORPUSCULAR HGB CONC 32.9 g/dL (32.0-36.0); MEAN CORPUSCULAR VOLUME 93.2 fL (79-99); MONOCYTES # (AUTO) 0.7 K/uL (0.1-1.0); MONOCYTES % (AUTO) 9.2 % (3.0-13.0); NEUTROPHILS # (AUTO) 4.5 K/uL (1.8-7.7); NEUTROPHILS % (AUTO) 58.6 % (40.0-77.0); PLATELET COUNT (AUTO) 345 K/uL (130-400); RED BLOOD CELL COUNT(AUTO) 4.24 MIL/uL (4.00-5.50); RED CELL DISTRIBUTION WIDTH 13.2 % (11.0-15.5); WHITE BLOOD COUNT (AUTO) 7.7 K/uL (4.8-10.8)
[2024-06-09] MEDS: metoPROLOL tartRATE 1 MG/ML 5ML VIAL IV ONE (18:52)
[2024-06-09 18:57] LABS: CREATININE 0.9 mg/dL (0.5-1.0); POTASSIUM 3.9 mmol/L (3.5-5.1)
[2024-06-09 19:08] LABS: B-TYPE NATRIURETIC PEPTIDE 133 pg/mL (0-100)
[2024-06-09] MEDS ORDERED: AMIODARONE IV ONE (19:30)
[2024-06-09] MEDS ORDERED: WATER IV ONE (19:30)
[2024-06-09] MEDS ORDERED: DEXTROSE 5% IV ONE (19:30)
[2024-06-09 20:31] LABS: ADD UA MICROSCOPIC YES; APPEARANCE,URINE CLEAR (CLEAR); BILIRUBIN,URINE NEGATIVE (NEGATIVE); COLOR,URINE YELLOW (YELLOW); GLUCOSE, URINE (UA) NEGATIVE (NEGATIVE); KETONES,URINE NEGATIVE (NEGATIVE); LEUKOCYTE ESTERASE ,URINE TRACE Leu/uL (NEGATIVE); NITRATE,URINE NEGATIVE (NEGATIVE); OCCULT BLOOD,URINE TRACE-INTACT (NEGATIVE); PH,URINE 6.5 (5.0-8.0); PROTEIN,URINE NEGATIVE (NEGATIVE); UROBILINOGEN,URINE 0.2 mg/dL (0.2-1.0)
[2024-06-09 20:36] LABS: BACTERIA,URINE Rare /HPF (None Seen); RBC,URINE 0-1 /HPF (0-1); SQUAMOUS EPITHELIAL CELL,UR Few /HPF (0-2); WBC,URINE 0-1 /HPF (0-1)
[2024-06-09] MEDS ORDERED: PoTASSium chloRIDE 20MEQ/100ML 100 ML IV PRN (21:30)
[2024-06-09] MEDS ORDERED: PoTASSium chl 10% ELIXIR 20MEQ 20 MEQ/15 ML UDCUP PO PRN (21:30)
[2024-06-09] MEDS ORDERED: ondanSETRON 4MG INJ IV PRN (21:30)
[2024-06-09] MEDS ORDERED: MAGNESIUM 2GM PREMIX 50ML 50 ML IV PRN (21:30)
[2024-06-09] MEDS ORDERED: acetaMINOPHEN 325 MG TAB PO PRN ×2 (21:30)
[2024-06-09] MEDS: cefTRIAXone 1G VIAL IVPB ONE (21:38)
[2024-06-09 23:50] VITALS: O2SAT 100
[2024-06-10] VITALS (9 sets, daily range): BP systolic 108–128; BP diastolic 62–85; PULSE 62–74; RESP 16–18; TEMP 97.6–98.7; O2SAT 94–97
[2024-06-10 04:17] LABS: HEMATOCRIT 34.6 % (36-48); MEAN CORPUSCULAR HEMOGLOBIN 30.5 pg (27.0-33.0); MEAN CORPUSCULAR HGB CONC 32.7 g/dL (32.0-36.0); MEAN CORPUSCULAR VOLUME 93.5 fL (79-99); RED BLOOD CELL COUNT(AUTO) 3.7 MIL/uL (4.00-5.50); RED CELL DISTRIBUTION WIDTH 13.2 % (11.0-15.5); WHITE BLOOD COUNT (AUTO) 7.2 K/uL (4.8-10.8)
[2024-06-10 04:29] LABS: INR 1.24 (0.85-1.15); PROTHROMBIN TIME 13.2 SEC (9.6-11.6)
[2024-06-10 04:31] LABS: PARTIAL THROMBOPLASTIN TIME 35.7 SEC (26.3-35.5)
[2024-06-10 04:42] LABS: ALBUMIN 3.1 g/dL (3.5-5.0); BILIRUBIN,TOTAL 0.4 mg/dL (0.2-1.0); CREATININE 0.7 mg/dL (0.5-1.0); POTASSIUM 3.7 mmol/L (3.5-5.1); THYROID STIMULATING HORMONE 3.4 uIU/mL (0.36-3.74); TOTAL PROTEIN, SERUM 6.6 g/dL (6.0-8.3)
[2024-06-10] MEDS: PoTASSium chloRIDE 20MEQ ER 20 MEQ ERTAB PO PRN (06:45)
[2024-06-10] MEDS: RIVAROXABAN 20 MG TABLET PO SCH (11:07)
[2024-06-10] MEDS: FAMOTIDINE 20MG TAB PO SCH (11:08)
[2024-06-10] MEDS: PROPAFENONE HCL 325 MG PO SCH (11:08)
[2024-06-10] MEDS: PoTASSium chloRIDE 20MEQ ER 20 MEQ ERTAB PO ONE (11:08)
[2024-06-10] MEDS: VERAPAMIL HCL 240 MG SRTAB PO SCH (13:00)
[2024-06-10] MEDS: metoPROLOL tartRATE 25 MG TAB PO SCH (20:46)
[2024-06-11 00:31] VITALS: BP 124/70; PULSE 80; RESP 18; TEMP 98.6
[2024-06-11 03:45] LABS: HEMATOCRIT 35.9 % (36-48); MEAN CORPUSCULAR HEMOGLOBIN 30.7 pg (27.0-33.0); MEAN CORPUSCULAR HGB CONC 32.3 g/dL (32.0-36.0); RED BLOOD CELL COUNT(AUTO) 3.78 MIL/uL (4.00-5.50); WHITE BLOOD COUNT (AUTO) 6.5 K/uL (4.8-10.8)
[2024-06-11 04:02] LABS: ALBUMIN 3.1 g/dL (3.5-5.0); BILIRUBIN,TOTAL 0.4 mg/dL (0.2-1.0); CREATININE 0.8 mg/dL (0.5-1.0); MAGNESIUM 2.3 mg/dL (1.80-2.40); POTASSIUM 4.3 mmol/L (3.5-5.1); TOTAL PROTEIN, SERUM 6.7 g/dL (6.0-8.3)
[2024-06-11 04:20] VITALS: BP 102/59; PULSE 63; RESP 20; TEMP 98.4
[2024-06-11 07:00] VITALS: BP 106/63; PULSE 80; RESP 46; TEMP 97.5
[2024-06-11 07:14] VITALS: PULSE 79; RESP 18; O2SAT 99
[2024-06-11 08:00] VITALS: O2SAT 96
[2024-06-11] MEDS ORDERED: DRON400T7 PO (10:41)
[2024-06-11 11:00] VITALS: BP 124/69; PULSE 79; RESP 20; TEMP 97.8
== END 2024-06-11 16:40 | disposition home or self-care (01) | DRG 309 ==
LOC: EDH 18:27 → EDHIP 21:28 → 2DH 23:43
PROVIDERS: ADMIT Internal Medicine; ATTEND Internal Medicine
PROC: 5A09357 Assistance with Respiratory Ventilation, Less than 24 Consecutive Hours, Continuous Positive Airway Pressure (ICD-10-PCS; principal; 2024-06-11)
DX: I48.0 Paroxysmal atrial fibrillation (principal); D68.69 Other thrombophilia; N39.0 Urinary tract infection, site not specified; E11.9 Type 2 diabetes mellitus without complications; E78.00 Pure hypercholesterolemia, unspecified; E66.01 Morbid (severe) obesity due to excess calories; G47.33 Obstructive sleep apnea (adult) (pediatric); I10 Essential (primary) hypertension; Z82.0 Family history of epilepsy and other diseases of the nervous system; Z82.49 Family history of ischemic heart disease and other diseases of the circulatory system; Z79.01 Long term (current) use of anticoagulants; Z90.710 Acquired absence of both cervix and uterus; Z95.0 Presence of cardiac pacemaker; Z68.35 Body mass index [BMI] 35.0-35.9, adult
CPT/HCPCS: 36415; 71045; 80048; 80053; 80061; 81001; 82550; 83735; 83880; 84443; 84484; 85025; 85027; 85610; 85730; 93005; 94660; 99291; G0378; J0282; J0696; J3490; J7060

== ENCOUNTER 2024-07-04 08:19 | Day surgery (SDC) | payer OTHER, MEDICARE ==
[2024-07-02 13:52] VITALS: BP 130/72; PULSE 115; RESP 19; TEMP 98.1
[2024-07-02 13:54] LABS: BASOPHILS # (AUTO) 0.03 K/uL (0.00-0.20); BASOPHILS % (AUTO) 0.4 % (0.0-5.0); EOSINOPHILS # (AUTO) 0.24 K/uL (0.00-0.70); EOSINOPHILS % (AUTO) 3.1 % (0.0-8.0); HEMATOCRIT 34.8 % (36-48); IMMATURE GRANULOCYTE ABSOLUTE 0.04 K/uL (0-1); LYMPHOCYTES % (AUTO) 25.4 % (21.0-51.0); MEAN CORPUSCULAR HEMOGLOBIN 30.3 pg (27.0-33.0); MEAN CORPUSCULAR HGB CONC 32.8 g/dL (32.0-36.0); MEAN CORPUSCULAR VOLUME 92.6 fL (79-99); MONOCYTES # (AUTO) 0.7 K/uL (0.1-1.0); MONOCYTES % (AUTO) 8.4 % (3.0-13.0); NEUTROPHILS # (AUTO) 4.8 K/uL (1.8-7.7); NEUTROPHILS % (AUTO) 62.2 % (40.0-77.0); PLATELET COUNT (AUTO) 327 K/uL (130-400); RED BLOOD CELL COUNT(AUTO) 3.76 MIL/uL (4.00-5.50); RED CELL DISTRIBUTION WIDTH 13.1 % (11.0-15.5); WHITE BLOOD COUNT (AUTO) 7.7 K/uL (4.8-10.8)
[2024-07-02 14:00] LABS: CREATININE 0.8 mg/dL (0.5-1.0)
[2024-07-02 14:07] LABS: INR 1.74 (0.85-1.15)
[2024-07-02 14:08] LABS: PARTIAL THROMBOPLASTIN TIME 54.4 SEC (26.3-35.5)
[2024-07-04] VITALS (17 sets, daily range): BP systolic 117–141; BP diastolic 50–99; PULSE 62–75; RESP 16; TEMP 97.3–98.5
[~2024-07-04] VITALS: Ht 154.9 cm; Wt 90.8 kg
[~2024-07-04 08:19] MED LIST changes: -CEFD300C3 PO; +DRON400T7 PO; -PROP325C17 PO; +ROSU10TA72 PO
[2024-07-04] MEDS: 0.9%NACL 1000ML 1,000 ML IV ONE (09:32)
[2024-07-04 09:57] LABS: APPEARANCE,URINE CLOUDY (CLEAR); BILIRUBIN,URINE NEGATIVE (NEGATIVE); COLOR,URINE YELLOW (YELLOW); GLUCOSE, URINE (UA) NEGATIVE (NEGATIVE); KETONES,URINE NEGATIVE (NEGATIVE); LEUKOCYTE ESTERASE ,URINE NEGATIVE Leu/uL (NEGATIVE); NITRATE,URINE NEGATIVE (NEGATIVE); PH,URINE 6.5 (5.0-8.0); PROTEIN,URINE 10 mg/dL (NEGATIVE)
[2024-07-04 10:09] LABS: ADD UA MICROSCOPIC YES
[2024-07-04 10:16] LABS: BACTERIA,URINE RARE /HPF (None Seen); MUCUS,URINE RARE LPF (None Seen); SQUAMOUS EPITHELIAL CELL,UR MOD /HPF (0-2)
[2024-07-04] MEDS ORDERED: proPOFol 10 MG/ML 20ML VIAL IV ONE (11:40)
[2024-07-04] MEDS ORDERED: FENTanyl CITRate PF 50 MCG/1 ML 2ML VIAL ONE ×3 (11:40→16:39)
[2024-07-04] MEDS ORDERED: rocuRONium bROMide 10MG/1ML 5ML VL ONE (11:40)
[2024-07-04] MEDS ORDERED: MIDAZOLAM HCL 1 MG/ML 2ML VIAL ONE (11:40)
[2024-07-04] MEDS ORDERED: phenylEPHRINE HCL 10 MG/ML 1ML VIAL IV ONE (13:05)
[2024-07-04] MEDS ORDERED: LIDOCAINE HCL 400MG/20ML VIAL ONE (13:08)
[2024-07-04] MEDS ORDERED: HEParin 10,000 UNIT/10ML (1,000 UNIT/ML) VIAL ONE (13:09)
[2024-07-04] MEDS ORDERED: HEParin-NS 1,000 UNIT/500 ML 1,500 ML IV ONE (13:09)
[2024-07-04] MEDS ORDERED: PROTamine SULFate 10 MG/ML 25ML VIAL IV ONE (16:21)
[2024-07-04] MEDS ORDERED: acetaMINOPHEN 325 MG TAB PO PRN (16:30)
[2024-07-04] MEDS ORDERED: PANT40TA55 PO (16:32)
[2024-07-04] MEDS ORDERED: SUCR1TAB28 PO (16:32)
[2024-07-04] MEDS ORDERED: GLYCOPYRROLATE 0.2 MG/ML 5 ML VIAL ONE (16:38)
[2024-07-04] MEDS ORDERED: NEOSTIGMINE METHYLSULFATE 1MG/ML IV ONE (16:39)
[2024-07-04] MEDS ORDERED: ondanSETRON 4MG INJ ONE (17:01)
[2024-07-04] MEDS ORDERED: metoCLOPRAmide 10 MG/2 ML VIAL ONE (17:15)
== END 2024-07-04 18:45 | disposition home or self-care (01) ==
LOC: DAH 08:19
PROVIDERS: ATTEND Internal Medicine Cardiovascular Disease
DX: I48.0 Paroxysmal atrial fibrillation (principal); I44.1 Atrioventricular block, second degree; I10 Essential (primary) hypertension; E78.5 Hyperlipidemia, unspecified; E66.01 Morbid (severe) obesity due to excess calories; Z99.89 Dependence on other enabling machines and devices; G47.33 Obstructive sleep apnea (adult) (pediatric); Z90.710 Acquired absence of both cervix and uterus; Z90.49 Acquired absence of other specified parts of digestive tract; Z95.0 Presence of cardiac pacemaker; Z79.01 Long term (current) use of anticoagulants; Z79.899 Other long term (current) drug therapy
CPT/HCPCS: 80048; 85025; 85610; 85730; 36415 ×2; 93005; 93656; 93657; 85347 ×6; 81001; C1894 ×3; C1732 ×3; A4649 ×2; C1760 ×2; C1766; J3010 ×3; J3490 ×3; J7030; J1644 ×2; J2250; J2704; J2405; J2710; J2765; J2371; A4215; A4222; A4221; A4663; A4216; A4606; J2720; A4223 ×3

== ENCOUNTER 2024-12-15 18:17 | Emergency (ER) | payer OTHER, MEDICARE ==
[~2024-12-15] VITALS: Ht 157.5 cm; Wt 86.6 kg
[~2024-12-15 18:17] MED LIST changes: -METO25 PO; +METO25TA6 PO; +PANT40TA55 PO; +SUCR1TAB2 PO; +SUCR1TAB28 PO
--- NOTE | 2024-12-15 18:54 | HMCIMG ---
Exam Type: CHEST 1VW Clinical Information: CP Comparison: None Findings: The lungs are clear of infiltrates. The heart is enlarged in size. The bony and soft tissue structures of the chest are unremarkable. Left cardiac pacemaker is noted with leads in place. Impression: Clear lungs.
[2024-12-15 19:12] LABS: BASOPHILS # (AUTO) 0.04 K/uL (0.00-0.20); BASOPHILS % (AUTO) 0.5 % (0.0-5.0); EOSINOPHILS # (AUTO) 0.12 K/uL (0.00-0.70); EOSINOPHILS % (AUTO) 1.6 % (0.0-8.0); HEMATOCRIT 36.3 % (36-48); IMMATURE GRANULOCYTE ABSOLUTE 0.03 K/uL (0-1); LYMPHOCYTES # (AUTO) 1.5 K/uL (1.0-4.8); LYMPHOCYTES % (AUTO) 19.8 % (21.0-51.0); MEAN CORPUSCULAR HEMOGLOBIN 30.2 pg (27.0-33.0); MEAN CORPUSCULAR HGB CONC 32.5 g/dL (32.0-36.0); MEAN CORPUSCULAR VOLUME 92.8 fL (79-99); MONOCYTES # (AUTO) 0.7 K/uL (0.1-1.0); MONOCYTES % (AUTO) 9.3 % (3.0-13.0); NEUTROPHILS # (AUTO) 5.2 K/uL (1.8-7.7); NEUTROPHILS % (AUTO) 68.4 % (40.0-77.0); PLATELET COUNT (AUTO) 314 K/uL (130-400); RED BLOOD CELL COUNT(AUTO) 3.91 MIL/uL (4.00-5.50); RED CELL DISTRIBUTION WIDTH 13.3 % (11.0-15.5); WHITE BLOOD COUNT (AUTO) 7.6 K/uL (4.8-10.8)
[2024-12-15 19:26] LABS: CREATININE 0.9 mg/dL (0.5-1.0); POTASSIUM 3.8 mmol/L (3.5-5.1)
[2024-12-15 19:59] LABS: APPEARANCE,URINE CLEAR (CLEAR); BILIRUBIN,URINE NEGATIVE (NEGATIVE); COLOR,URINE LIGHT-YELLOW (YELLOW); GLUCOSE, URINE (UA) NEGATIVE (NEGATIVE); KETONES,URINE 10 mg/dL (NEGATIVE); LEUKOCYTE ESTERASE ,URINE 25 Leu/uL (NEGATIVE); NITRATE,URINE NEGATIVE (NEGATIVE); OCCULT BLOOD,URINE SMALL (NEGATIVE); PH,URINE 6.5 (5.0-8.0); PROTEIN,URINE NEGATIVE (NEGATIVE); UROBILINOGEN,URINE 0.2 mg/dL (0.2-1.0)
[2024-12-15 20:00] LABS: ADD UA MICROSCOPIC YES
[2024-12-15 20:03] LABS: BACTERIA,URINE RARE /HPF (None Seen); MUCUS,URINE RARE LPF (None Seen); SQUAMOUS EPITHELIAL CELL,UR FEW /HPF (0-2)
[2024-12-15] MEDS: ketOROlac 15MG/ML VIAL (15MG/ML) IV STA (20:06)
--- NOTE | 2024-12-15 20:39 | HMCIMG ---
Exam Type: ABD 1VW Clinical Information: constipation Comparison: None Findings: Abdomen demonstrates no evidence of pathologic calcification or soft tissue mass. There are no radiopacities to suggest calculous disease. The intestinal gas pattern is within normal limits without evidence of dilatation to suggest obstruction or adynamic ileus. The bony structures are unremarkable. IMPRESSION: Normal abdomen.
--- NOTE | 2024-12-15 20:53 | ERN ---
ED Note History of Present Illness Stated Complaint: LEFT SIDE CHEST PAIN X5 DAYS Chief Complaint: Chest Wall Pain Time Seen by MD: 18:19 Time Seen by Midlevel: 18:21 Dictation: 64-year-old female coming in with complaints of of chest wall pain and back pain and feeling gassy for the last two days. Patient states just pain and worse upon movement or taking a deep breath. Denies feeling any shortness a breath, cough, nausea, vomiting, fever. Allergies: Coded Allergies: No Known Drug Allergies (Unverified Allergy, Unknown, 04/20/19) Home Meds Active Scripts Rivaroxaban (Xarelto) 20 Mg Tablet, 1 TAB PO DAILY for arrhythmia for 30 Days, #30 TAB 0 Refills with food Prov:PIERRE DEY 07/15/24 Sucralfate (Carafate) 1 Gram Tablet, 1 TAB PO QID for 14 Days, #56 TAB 0 Refills Dissolve in water Prov:YANETH CORTÉS MD 07/04/24 Pantoprazole Sodium (Protonix) 40 Mg Ectab, 1 TAB PO DAILY for 14 Days, #14 TAB 0 Refills Prov:YANETH CORTÉS MD 07/04/24 Reported Medications Dronedarone Hydrochloride (Multaq) 400 Mg Tablet, 400 MG PO BID, TAB 07/13/24 Rosuvastatin Calcium (Rosuvastatin Calcium) 10 Mg Tablet, 10 MG PO ONCE, TAB 07/13/24 Sucralfate (Sucralfate) 1 Gram Tablet, 1 TAB PO QID for 30 Days, #120 TAB 0 Refills 07/13/24 Metoprolol Tartrate (Metoprolol Tartrate) 25 Mg Tablet, 12.5 MG PO BID, TAB 07/13/24 Rivaroxaban (Xarelto) 20 Mg Tablet, 20 MG PO DAILY, TAB 10/18/23 Past Medical History Past Medical History: A-Fib, Diabetes-Type II, High Cholesterol, Heart Disease, Hypertension Additional Past Medical Hx: BACK PROBLEMS Surgical History: Hysterectomy, Cholecystectomy, Pacer/AICD Family History: Negative Social History: Negative, Other History: Not Applicable Review of System Dictation Constitutional: Negative for fever,chills, and weight loss Eyes: Negative for injury, pain,redness, and discharge ENT: Negative for injury,pain or swelling Cardiovascular: Complaining of chest pain, no palpitations, and no edema Respiratory: Negative for shortness of breath, cough, and wheezing, Abdomen/GI: Negative for abdominal pain, nausea, vomiting, diarrhea, and constipation Back: Negative for injury and pain : Negative for injury, bleeding and discharge MS/Extremity: Negative for injury and deformity Skin: Negative for rash, and discoloration Neuro: Negative for headache, weakness, numbness, tingling, and seizure Psych: Negative for suicide ideation, homicidal ideation, and hallucinations Review of Systems: was completed Initial Vital Sign VS Vital Signs Date Time Temp Pulse Resp B/P (MAP) Pulse Ox O2 Delivery O2 Flow Rate FiO2 12/15/24 18:19 98.6 86 14 153/82 96 Room Air 0 Physical Exam Dictation General: awake, alert, NAD Head/Face: Normocephalic, atraumatic Eyes: PERRL, EOMI, vision at baseline ENT: oral cavity clear, TMs clear, no signs of infection Neck: Trachea midline, supple, no nuchal rigidity Cardiovascular: RRR, normal S1/S2, No MRGs, no JVD, reproducible chest pain on palpation to the left chest wall Respiratory: CTAB, no respiratory distress, No rales or wheezes Abdomen: Soft, non-tender, non-distended, normal bowel sounds, no guarding or rebound. Skin: Warm, dry, normal turgor, no rash MS/Extremity: Pulses equal, no cyanosis, neurovascular intact, FROM Neuro: COAx4, GCS 15, strength 5/5, CN 2-12 intact, normal cerebellar exam, normal gait, Psych: Normal behavior, mood, and affect normal Results (Laboratory/Radiology) Laboratory/Radiology Laboratory Tests Test 12/15/24 18:34 12/15/24 19:43 12/15/24 20:09 White Blood Count 7.6 K/uL (4.8-10.8) Red Blood Count 3.91 MIL/uL (4.00-5.50) L Hemoglobin 11.8 g/dL (12.0-16.0) L Hematocrit 36.3 % (36-48) Mean Corpuscular Volume 92.8 fL (79-99) Mean Corpuscular Hemoglobin 30.2 pg (27.0-33.0) Mean Corpuscular Hemoglobin Concent 32.5 g/dL (32.0-36.0) Red Cell Distribution Width 13.3 % (11.0-15.5) Platelet Count 314 K/uL (130-400) Mean Platelet Volume 10.8 fL (7.5-10.5) H Immature Granulocyte % (Auto) 0.4 % (0-1) Neutrophils (%) (Auto) 68.4 % (40.0-77.0) Lymphocytes (%) (Auto) 19.8 % (21.0-51.0) L Monocytes (%) (Auto) 9.3 % (3.0-13.0) Eosinophils (%) (Auto) 1.6 % (0.0-8.0) Basophils (%) (Auto) 0.5 % (0.0-5.0) Neutrophils # (Auto) 5.2 K/uL (1.8-7.7) Lymphocytes # (Auto) 1.5 K/uL (1.0-4.8) Monocytes # (Auto) 0.7 K/uL (0.1-1.0) Eosinophils # (Auto) 0.12 K/uL (0.00-0.70) Basophils # (Auto) 0.04 K/uL (0.00-0.20) Absolute Immature Granulocyte (auto 0.03 K/uL (0-1) Nucleated Red Blood Cells 0.0 % (0.0-0.19) Sodium Level 141 mmol/L (136-145) Potassium Level 3.8 mmol/L (3.5-5.1) Chloride Level 102 mmol/L (101-111) Carbon Dioxide Level 31 mmol/L (21-32) Blood Urea Nitrogen 16 mg/dL (7-18) Creatinine 0.9 mg/dL (0.5-1.0) Glomerular Filtration Rate Calc 71 mL/min (>90) Random Glucose 91 mg/dL (70-105) Total Calcium 9.0 mg/dL (8.5-10.1) Troponin I High Sensitivity 6 ng/L (4-50) 7 ng/L (4-50) Urine Color LIGHT-YELLOW (YELLOW) Urine Appearance CLEAR (CLEAR) Urine pH 6.5 (5.0-8.0) Urine Specific [place] 1.011 (1.001-1.031) Urine Protein NEGATIVE mg/dL (NEGATIVE) Urine Glucose (UA) NEGATIVE mg/dL (NEGATIVE) Urine Ketones 10 mg/dL (NEGATIVE) H Urine Occult Blood SMALL (NEGATIVE) H Urine Nitrate NEGATIVE (NEGATIVE) Urine Bilirubin NEGATIVE mg/dL (NEGATIVE) Urine Urobilinogen 0.2 mg/dL (0.2-1.0) Urine Leukocyte Esterase 25 Ashley/uL (NEGATIVE) H Urine RBC 2-5 /HPF (0-1) H Urine WBC 2-5 /HPF (0-1) H Urine Squamous Epithelial Cells FEW /HPF (0-2) Urine Bacteria RARE /HPF (None Seen) Labs Reviewed?: Yes X-RAY Comment: [place] [id number] [id number] IMAGING REPORT Signed PATIENT: MARY ANN PHILIP MR#: [id number] : 1960 SEX: F AGE: 64 LOCATION: [facility] ORDER 32 STATUS: REG ER REPORT#: [id number] SERVICE 31 REASON: CP ORDERING PHYSICIAN: LONNIE JACOBSON NP PROCEDURE: CXR1VW - CHEST 1VW Exam Type: CHEST 1VW Clinical Information: CP Comparison: None Findings: The lungs are clear of infiltrates. The heart is enlarged in size. The bony and soft tissue structures of the chest are unremarkable. Left cardiac pacemaker is noted with leads in place. Impression: Clear lungs. DICTATED BY: FAUSTINO RIVER MD DATE: 12/15/241851 ELECTRONICALLY SIGNED BY: FAUSTINO RIVER MD DATE: 12/15/241853 [place] [id number] [id number] IMAGING REPORT Signed PATIENT: MARY ANN PHILIP MR#: [id number] : 1960 SEX: F AGE: 64 LOCATION: [facility] ORDER 10 STATUS: REG ER REPORT#: [id number] SERVICE 09 REASON: constipation ORDERING PHYSICIAN: LONNIE JACOBSON NP PROCEDURE: ABD 1VW - ABD 1VW Exam Type: ABD 1VW Clinical Information: constipation Comparison: None Findings: Abdomen demonstrates no evidence of pathologic calcification or soft tissue mass. There are no radiopacities to suggest calculous disease. The intestinal gas pattern is within normal limits without evidence of dilatation to suggest obstruction or adynamic ileus. The bony structures are unremarkable. IMPRESSION: Normal abdomen. DICTATED BY: FAUSTINO RIVER MD DATE: 12/15/242033 ELECTRONICALLY SIGNED BY: FAUSTINO RIVER MD DATE: 12/15/242038 ED Course ED Course Orders Procedure Category Date Status Time 12 Lead Ekg Tracing- EKG 12/15/24 Logged Technical 18:21 Cbc With Differential LAB 12/15/24 Complete 18:32 Basic Metabolic Panel LAB 12/15/24 Complete 18:32 Troponin I High LAB 12/15/24 Complete Sensitivity 18:32 12 Lead Ekg Tracing- EKG 12/15/24 Logged Technical 18:32 Chest 1vw RAD 12/15/24 Resulted 18:32 Ketorolac PHA 12/15/24 Complete Tromethamine 15mg/Ml 19:41 Troponin I High LAB 12/15/24 Complete Sensitivity 19:42 Urinalysis Profile LAB 12/15/24 Complete 19:47 Abd 1vw RAD 12/15/24 Resulted 20:10 Current Medications Medications (Trade) Dose Ordered Sig/Chinmay Route PRN Reason Start Time Stop Time Status Last Admin Dose Admin Ketorolac Tromethamine (toRADol) 15 mg ONCE STAT IV 12/15/24 19:41 12/15/24 19:43 DC 12/15/24 20:06 Vital Signs Date Time Temp Pulse Resp B/P (MAP) Pulse Ox O2 Delivery O2 Flow Rate FiO2 12/15/24 18:19 98.6 86 14 153/82 96 Room Air 0 HEART Score Response (Comments) Value History: Low suspicion (0) 0 EKG: Normal 0 Age: 45-65yrs (+1) 1 Risk Factors: 1-2 risk factors (+1) 1 Initial Troponin: Normal limit (0) 0 HEART Score Risk: Low Risk for MACE (1-3) Total 2 Medical Decision Making MDM MDM: 64-year-old female coming in with complaints of of chest wall pain and back pain and feeling gassy for the last two days. Patient states just pain and worse upon movement or taking a deep breath. Denies feeling any shortness a breath, cough, nausea, vomiting, fever. Cardiac workup is negative. Troponin x2 negative. EKGs did not show any ST elevations or dysrhythmias. Chest x-ray shows no lung pathology. Abdomen x-ray shows gas, and, interpreted by myself and ER MD. after pain medication, patient states feels better. Discussed with the patient should follow up with PCP. Patient states she has a PCP appointment tomorrow. Discussed on signs and symptoms of when to return back to the ER. Patient verbalized understanding, answered all questions. Differential diagnosis: ACS, costochondritis, pneumonia Rationale: Tests considered and ordered secondary to shared decision making include: Previous outside records reviewed: Old ER visits. Risk of complication and/or morbidity or mortality of patient management: None Medications-Per medication reconciliation Need for hospitalization: Patient does not meet criteria for hospitalization. Need for emergency major/minor surgery: No There are no social concerns with this patient. Prescription drug management Prescriptions will include symptomatic care Patient's prior external medical records from other ER visits were reviewed by me as indicated. Prior testing and results from previous visits were reviewed. Prior tests were taken into account with medical decision making and resource utilization, independent historian/historians were used to obtain complete medical history. I independently interpreted the test that were performed, results were reviewed by me and considered findings on radiology if ordered. Medical management and examination interpretation discussions were had by me with other qualified healthcare professionals as indicated for the patient's care. DX & DISP Disposition: Discharge Departure Impression: Primary Impression: Chest wall pain Additional Impression: Musculoskeletal chest pain Condition: Stable Additional Instructions: Keep your appointment for your PCP tomorrow. Return to the hospital via worsening symptoms. Referrals: DEBBIE SIMMS (PCP) Time of Disposition: 20:53 I have reviewed the case, and I agree with, Diagnosis and Plan LONNIE JACOBSON NP Dec 15, 2024 20:53
[2024-12-15 20:57] VITALS: BP 111/55; PULSE 73; RESP 17; TEMP 98.6; O2SAT 99
--- NOTE | 2024-12-16 06:25 | EKG ---
[facility] Test Date: 2024-12-15 Test Time: 18:15:55 Pat Name: MARY ANN PHILIP Department: ED Room: Gender: F Fingerprinter: 08 : 1960 Requested By: LONNIE JACOBSON Order Number: [id number] Reading MD: Waylon Curry Measurements Intervals [place] Rate: 80 P: 33 TX: 148 QRS: 23 QRSD: 88 T: 6 QT: 389 QTc: 447 Interpretive Statements Sinus rhythm Compared to ECG 07/13/2024 00:55:59 No significant changes Electronically Signed On 12-16-2024 13:36:30 CDT by Waylon Curry Please click the below link to view image of tracing.
== END 2024-12-15 21:02 | disposition home or self-care (01) ==
LOC: EDH 18:17
DX: R07.89 Other chest pain (principal); E11.9 Type 2 diabetes mellitus without complications; E78.00 Pure hypercholesterolemia, unspecified; I10 Essential (primary) hypertension; I48.91 Unspecified atrial fibrillation; Z79.01 Long term (current) use of anticoagulants; Z79.899 Other long term (current) drug therapy; Z90.49 Acquired absence of other specified parts of digestive tract; Z90.710 Acquired absence of both cervix and uterus; Z95.810 Presence of automatic (implantable) cardiac defibrillator
CPT/HCPCS: 99285; 96374; 71045; 84484 ×2; 80048; 85025; 81001; 36415; 74018; 93005; J1885

== ENCOUNTER 2024-12-28 14:47 | Emergency (ER) | payer OTHER, MEDICARE ==
[~2024-12-28] VITALS: Ht 157.5 cm; Wt 83.9 kg
[2024-12-28 14:56] VITALS: BP 128/81; PULSE 72; RESP 14; TEMP 98.5
[2024-12-28] MEDS ORDERED: ACET-2079 PO (15:04)
--- NOTE | 2024-12-28 15:06 | ERN ---
ED Note History of Present Illness Stated Complaint: LEFT SIDE ABDOMEN PAIN Chief Complaint: Skin Rash/Abscess Time Seen by MD: 14:48 Dictation: PATIENT IS A 64-YEAR-OLD FEMALE WITH KNOWN SHINGLES TO HER LEFT LOWER BACK THAT WAS DIAGNOSED 3-4 DAYS PRIOR TO ARRIVAL. SHE IS ALREADY ON GABAPENTIN 300 MG B.I.D., FAMCICLOVIR AND STEROIDS. STATES THE GABAPENTIN IS NOT WORKING AND WOULD LIKE SOME STRONGER FOR PAIN. NO FEVER NO CHILLS NO NAUSEA VOMITING. Allergies: Coded Allergies: No Known Drug Allergies (Unverified Allergy, Unknown, 04/20/19) Home Meds Active Scripts Acetaminophen with Codeine (Acetaminophen-Cod #3 Tablet) 300 Mg-30 Mg Tablet, 1 TAB PO Q4H PRN for MODERATE TO SEVERE PAIN, #12 TAB 0 Refills Prov:JOHNATHON LEYVA AIRSET MOLDER 12/28/24 Rivaroxaban (Xarelto) 20 Mg Tablet, 1 TAB PO DAILY for arrhythmia for 30 Days, #30 TAB 0 Refills with food Prov:PIERRE DEY 07/15/24 Sucralfate (Carafate) 1 Gram Tablet, 1 TAB PO QID for 14 Days, #56 TAB 0 Refills Dissolve in water Prov:YANETH CORTÉS MD 07/04/24 Pantoprazole Sodium (Protonix) 40 Mg Ectab, 1 TAB PO DAILY for 14 Days, #14 TAB 0 Refills Prov:YANETH CORTÉS MD 07/04/24 Reported Medications Dronedarone Hydrochloride (Multaq) 400 Mg Tablet, 400 MG PO BID, TAB 07/13/24 Rosuvastatin Calcium (Rosuvastatin Calcium) 10 Mg Tablet, 10 MG PO ONCE, TAB 07/13/24 Sucralfate (Sucralfate) 1 Gram Tablet, 1 TAB PO QID for 30 Days, #120 TAB 0 Refills 07/13/24 Metoprolol Tartrate (Metoprolol Tartrate) 25 Mg Tablet, 12.5 MG PO BID, TAB 07/13/24 Rivaroxaban (Xarelto) 20 Mg Tablet, 20 MG PO DAILY, TAB 10/18/23 Past Medical History Past Medical History: A-Fib, Diabetes-Type II, High Cholesterol, Heart Disease, Hypertension Additional Past Medical Hx: BACK PROBLEMS Surgical History: Hysterectomy, Cholecystectomy, Pacer/AICD Family History: Negative Social History: Negative, Other History: Not Applicable RN Note Reviewed/Agreed w/PFSH: Yes Review of System Dictation CONSTITUTIONAL: NEGATIVE EXCEPT FOR HPI HEAD/FACE: NEGATIVE EXCEPT FOR HPI EENT: NEGATIVE EXCEPT FOR HPI RESPIRATORY: NEGATIVE EXCEPT FOR HPI GASTROINTESTINAL/ABDOMINAL: NEGATIVE EXCEPT FOR HPI GENITOURINARY: NEGATIVE EXCEPT FOR HPI MUSCULOSKELETAL: NEGATIVE EXCEPT FOR HPI INTEGUMENTARY: NEGATIVE EXCEPT FOR HPI LEFT LOWER LUMBAR RASH WITH VESICULAR LESIONS NEUROLOGICAL/PSYCH: NEGATIVE EXCEPT FOR HPI HEMATOLOGIC/LYMPHATIC: NEGATIVE EXCEPT FOR HPI ALL SYSTEMS NEGATIVE, EXCEPT NOTED ABOVE. 13 POINT REVIEW OF SYSTEMS ASSESSED AND ALL NEGATIVE EXCEPT FOR ABOVE. Initial Vital Sign VS Vital Signs Date Time Temp Pulse Resp B/P (MAP) Pulse Ox O2 Delivery O2 Flow Rate FiO2 12/28/24 14:56 98.4 72 14 128/81 97 Room Air 0 Physical Exam Dictation VITAL SIGNS REVIEWED GENERAL APPEARANCE: ALERT, ORIENTED X 3, MODERATE ACUTE DISTRESS, WELL DEVELOPED, NOURISHED. HEAD AND FACE: NON-TRAUMATIC. EYES: PERRL, PINK CONJUNCTIVAS, EYELID NO TRAUMA, ANTERIOR CHAMBER WITH ARCUS SENILIS. EARS: PINNAS INTACT AND NO SIGNS OF TRAUMA OR ERYTHEMA EAR CANALS CLEAR AND NO DISCHARGE TM NO ERYTHEMA NOSE: NO DISCHARGE, NO BLEEDING. OROPHARYNX: MOUTH NORMAL, TONGUE PINK, PHARYNX CLEAR,NO ERYTHEMA, TONSILS NO EXUDATES, NO ABSCESSES NOTED, MUCOUS MEM BRANE MOIST NECK: SUPPLE, NON-TENDER, NO THYROMEGALY, NO MASSES, NO JVD, NO BRUITS BREAST:DEFERRED CHEST:NO TENDERNESS, NO CREPITUS, NO PARADOXICAL MOVEMENT, NO RETRACTIONS LUNGS:CLEAR, WELL-VENTILATED, SYMMETRIC, NO RALES, NO WHEEZING, NO RHONCHI, NO STRIDOR, GOOD BREATH SOUNDS BILATERALLY HEART: REGULAR RATE, REGULAR RHYTHM, NO MURMUR, NO GALLOPS VASCULAR: NO PERIPHERAL EDEMA, ABDOMEN: SOFT, POSITIVE BOWEL SOUNDS, NONDISTENDED, NO GUARDING, NONTENDER, NO REBOUND, NO MASSES NO HEPATOMEGALY, NO SPLENOMEGALY, NO OLIVEIRA'S SIGN, NO HERNIAS. RECTAL: DEFERRED GENITAL: DEFERRED NEUROLOGICAL: NORMAL SPEECH, MOTOR FUNCTION INTACT, SENSORY FUNCTION INTACT MUSCULOSKELETAL: NECK NONTENDER, FULL RANGE OF MOTION, BACK NONTENDER, FULL RANGE OF MOTION, EXTREMITIE DISCRETE VESICULAR RASH TO LEFT LOWER BACK DOES NOT CROSS MIDLINE. LYMPHATIC: DEFERRED Results (Laboratory/Radiology) Labs Reviewed?: Yes ED Course ED Course Orders Procedure Category Date Status Time Hydrocodone/Apap PHA 12/28/24 Complete 5/325 ([place] 5/325mg) 15:00 Current Medications Medications (Trade) Dose Ordered Sig/Chinmay Route PRN Reason Start Time Stop Time Status Last Admin Dose Admin Acetaminophen/ Hydrocodone Bitart (NORco 5/325MG) 1 tab ONCE ONCE PO 12/28/24 15:00 12/28/24 15:05 DC Vital Signs Date Time Temp Pulse Resp B/P (MAP) Pulse Ox O2 Delivery O2 Flow Rate FiO2 12/28/24 14:56 98.4 72 14 128/81 97 Room Air 0 1500/NO LABS OR IMAGING INDICATED. WE WILL GIVE PATIENT NORCO. AND PRESCRIBED TYLENOL NO. 3 UNTIL SHE SEES HER DOCTOR ON MONDAY. Medical Decision Making MDM MEDICAL DECISION-MAKING BASED ON EMPIRIC TREATMENT OF NEUROPATHIC PAIN AND SHINGLES. PATIENT ALREADY ON GABAPENTIN 800 B.I.D. WE WILL DISCHARGED HOME WITH TYLENOL NO. 3 PATIENT IS STRONGLY ADVISED TO SEE HER DOCTOR MONDAY WITHOUT FAIL FOR MANAGEMENT FOR NEUROPATHIC PAIN DX & DISP Disposition: Discharge Departure Impression: Primary Impression: Neuropathic pain Additional Impression: Herpes zoster Condition: Stable Scripts Acetaminophen with Codeine (Acetaminophen-Cod #3 Tablet) 300 Mg-30 Mg Tablet 1 TAB PO Q4H PRN for MODERATE TO SEVERE PAIN, #12 TAB 0 Refills Prov: JOHNATHON LEYVA AIRSET MOLDER 12/28/24 Additional Instructions: Follow-up with primary care provider in 1 to 2 days. Take medications as directed here in the emergency room. Okay to continue home medications unless otherwise discussed during your visit in the emergency room today. Return to your nearest emergency room if symptoms worsen or if there is no improvement. Call 911 if you need immediate assistance. Take Tylenol or Motrin [id number] as needed and if no contraindications are present. Increase oral hydration. A wound culture or urine culture was ordered here in the emergency room department please follow-up with primary care provider and advise them to get repeat ports from our facility. If you had any Arnold wrap/splints that were applied here, please do not remove them until you see your primary care or specialty. Take all medications that were prescribed by your primary care doctor. Take Tylenol with codeine as needed for severe pain. See your doctor on Monday morning without fail for follow up and management of your neuropathic pain Referrals: DEBBIE SIMMS (PCP) Time of Disposition: 15:04 I have reviewed the case, and I agree with, Diagnosis and Plan JOHNATHON LEYVA NP Dec 28, 2024 15:06 AVIS CALDWELL DO Dec 28, 2024 17:17
--- NOTE | 2024-12-28 15:56 | NUR ---
LEFT ER WITHOUT MEDICATION ADMINISTRATION OR DISCHARGE PAPERWORK. JOHNATHON LEYVA NP INFORMED.
[2024-12-28] MEDS: HYDROcodone/APAP 5/325 1 TAB TABLET PO ONE (15:57)
--- NOTE | 2024-12-28 15:59 | NUR ---
UNABLE TO REASSESS VITAL SIGNS. PATIENT LEFT ER WITHOUT NOTIFICATION TO STAFF
== END 2024-12-28 16:00 | disposition home or self-care (01) ==
LOC: EDH 14:47
DX: M79.2 Neuralgia and neuritis, unspecified (principal); B02.9 Zoster without complications; E11.9 Type 2 diabetes mellitus without complications; E78.00 Pure hypercholesterolemia, unspecified; I10 Essential (primary) hypertension; I48.91 Unspecified atrial fibrillation; Z79.01 Long term (current) use of anticoagulants; Z79.899 Other long term (current) drug therapy; Z90.49 Acquired absence of other specified parts of digestive tract; Z90.710 Acquired absence of both cervix and uterus; Z95.810 Presence of automatic (implantable) cardiac defibrillator
CPT/HCPCS: 99283